=== PATIENT | female | born 1950 | race Caucasian/White ===

== ENCOUNTER → 2020-02-27 | Outpatient (CLI) | payer OTHER | LOC: M.CT 09:00 | PROVIDERS: ATTEND Family Medicine | DX: Z13.6 Encounter for screening for cardiovascular disorders (principal); K76.89 Other specified diseases of liver; R91.1 Solitary pulmonary nodule ==

== ENCOUNTER → 2020-05-10 | Outpatient (CLI) | payer MEDICARE, OTHER ==
--- NOTE | 2020-05-10 17:44 | CARDNUC ---
[place] [address] CARDIAC NUCLEAR IMAGING REPORT Name: AYUSH ESPARZA Room: [facility]#: [id number] Admission: 05/10/20 Attend Phys: Leila Manuel Discharge: Date of : 54 Date of Service: 05/10/20 1744 Report #: [id number] THIS REPORT FOR: cc: Alli Hicks James A. DO Liston, Michael J. MD [facility] ~ APPROVED REPORT Imaging Protocol: Stress Tc-99m/Rest Tc-99m 1 day Study performed: 05/10/2020 09:00:00 Indication: Elevated CALCIUM SCORE/ABN CT SCAN. Patient Location: Out-Patient Stress Tech: Ivonne Gutierrez Stress Nurse: Jessica Ayoub RN Ht: 5 ft 4 in Wt: 131 lbs BSA: 1.63 m2 HR: 78 bpm BP: 122/70 mmHg BMI: 22.48 Medical History Medical History: Elevated calcium score/ABN CT scan, DM II, HTN, HLD, Family HX of CAD. Medications: ASA 81 MG, LISINOPRIL, METFORMIN, SIMVASTATIN. Allergies: No known drug allergies Cardiac Risk Factors: Age, Hyperlipidemia, HTN, Diabetes, ELEVATED CALCIUM SCORE. Previous Cardiac Procedures: None Pretest Chest Pain Characteristics: No chest pain Exercise History: Physically active Physical Disabilities: NONE Meds Held (24 hrs): None Resting Data Rest SPECT myocardial perfusion imaging was performed in supine position 30 minutes following the intravenous injection of 9.4 mCi of Tc-99m Sestamibi. Time of rest injection: 9:20 The images were gated to evaluate regional wall motion and calculate left ventricular ejection fraction. Administration Route: IV Administration Site: [place] [address] CARDIAC NUCLEAR IMAGING REPORT Name: AYUSH ESPARZA Room: [facility]#: [id number] Admission: 05/10/20 Attend Phys: Leila Manuel Discharge: Date of : 54 Date of Service: 05/10/20 1744 Report #: [id number] Exercise Stress At peak stress, the patient was injected intravenously with 31.7mCi of Tc-99m Sestamibi. Time of stress injection: 10:50 Administration Route: IV Administration Site: Right Hand Heart Rate at time of stress injection: 136 bpm. Patient continued to exercise for 1 minute(s). Gated Stress SPECT was performed 30 minutes after stress injection. Prone imaging was performed. Stress Test Details Stress Test: Exercise stress testing was performed using a Isaac protocol. HR Max Heart Rate (APMHR): 153 bpm Resting HR: 78 bpm Target HR (85% APMHR): 130 bpm Max HR Achieved: 136 bpm % of APMHR: 88 Recovery HR: 88 bpm BP Resting BP: 122/70 mmHg Max BP: 169/62 mmHg Recovery BP: 142/65 mmHg ECG Resting ECG: Sinus Rhythm Stress ECG: Sinus Tachycardia ST Change: None Arrhythmia: None Recovery ECG: Sinus Rhythm Recovery ST Change: None Recovery Arrhythmia: None Clinical Reason for Termination: Maximal effort, Target HR achieved. Stress Symptoms: DYSPNEA, FATIGUE. Exercise duration: 6 min 32 sec Exercise capacity: 7.86 METs Overall Exercise Capacity for Age: Superior The patient tolerated walking Lexiscan protocol without significant cardiac complaints. Nurse Comments A 69 YEAR OLD FEMALE PRESENTED FOR A TREADMILL [place] [address] CARDIAC NUCLEAR IMAGING REPORT Name: AYUSH ESPARZA Room: [facility]#: [id number] Admission: 05/10/20 Attend Phys: Leila Manuel Discharge: Date of : 54 Date of Service: 05/10/20 1744 Report #: [id number] TREADMILL TOLERATED TO STAGE 3. EXERCISE CAPACITY - SUPERIOR. RECOVERY UNREMARKABLE. PATIENT WAS STABLE AND STATED SHE FELT GOOD WHEN ESCORTED TO NUCLEAR MEDICINE FOR IMAGING. Stress ECG Conclusion The baseline twelve-lead EKG shows sinus rhythm without significant ST segment or T wave abnormality. EKGs obtained during and post walking Lexiscan stress show sinus rhythm and sinus tachycardia without significant ST segment or T wave changes when compared to baseline. There were no stress-induced arrhythmias. Study Quality Study: Good Artifact: No artifact Study Data At rest, the left ventricular ejection fraction was 77%.. Post stress, the left ventricular ejection was 79%.. TID = 0.84. Perfusion Perfusion images obtained at rest and post Lexiscan stress show uniform uptake of the radioisotope throughout the myocardium. There were no defects to suggest infarct or ischemia. Wall Motion Normal left ventricular wall motion. Nuclear Conclusion ECG Findings: negative for ischemia Clinical Findings: negative for ischemia Nuclear Findings: negative for ischemia Exercise Capacity: not assessed Left Ventricular Function: normal Risk Study: low Perfusion images show no defect to suggest infarct or ischemia. Left ventricular systolic function is normal on gated studies. This is a low risk study. <Conclusion> The baseline twelve-lead EKG shows sinus rhythm without significant ST segment or T wave abnormality. EKGs obtained during and post walking Lexiscan stress show sinus [place] [address] CARDIAC NUCLEAR IMAGING REPORT Name: AYUSH ESPARZA Room: [facility]#: [id number] Admission: 05/10/20 Attend Phys: Leila Manuel Discharge: Date of : 54 Date of Service: 05/10/20 1744 Report #: [id number] without significant [address] segment or T wave changes when compared to baseline. There were no stress-induced arrhythmias. <ELECTRONICALLY SIGNED> By: Marko Penn MD, FAC 05/10/20 1744 1744 1744 Marko Penn MD, [facility] /INF
== END ==
LOC: M.NUC 05-05 16:24
PROVIDERS: ATTEND Internal Medicine
DX: R93.1 Abnormal findings on diagnostic imaging of heart and coronary circulation (principal); E11.9 Type 2 diabetes mellitus without complications; I10 Essential (primary) hypertension; Z82.49 Family history of ischemic heart disease and other diseases of the circulatory system